=== PATIENT | female | born 1980 | race African-American/Black ===

== ENCOUNTER 2017-06-04 14:17 | Day surgery (SDC) | payer BC ==
[~2017-06-04 14:17] MED LIST: AMOXICILLIN500 MG; BACTRIM DS1 TAB PO; CIPROFLOXACN500 MG PO; COLACE100 MG PO; DIFLUCAN150 MG PO; FERR SULFATE325 MG PO; FIORICET PO; HYDROCO/APAP1 TA9 PO; LEVAQUIN500 MG PO; LORTAB 10-325 M1 TAB PO; LORTAB 5/3255 MG PO; LORTAB 7.57.5 MG PO; LORTAB5 PO; MACROBID100 MG PO; MEGACE40 MG PO; MEGESTROL AC20 MG PO; NAPROSYN250 MG PO; NITROFURANTO100 MG PO; NO; PYRIDIUM200 MG PO; TORADOL PO; ULTRAM50 M1 PO; ULTRAM50 MG OR
[2017-06-04 15:46] LABS: HEMATOCRIT 28.8 % (37.0-47.0); HEMOGLOBIN 8.6 g/dl (12.0-16.0); IMMATURE GRANULOCYTES 0.3 % (0.0-1.0); MEAN CORPUSCULAR HGB 21.5 pG CALC (26.0-32.0); MEAN CORPUSCULAR HGB CONC 29.9 g/L CALC (32.0-36.0); NEUT# 4.47 thou/uL (2.00-7.15); RED CELL DISTRI WIDTH 18.2 % (11.5-15.5)
[2017-06-04] MEDS ORDERED: PREMARIN0.3 MG PO (16:32)
[2017-06-04] MEDS ORDERED: PROVERA5 MG PO (16:34)
[2017-06-04] MEDS ORDERED: VYVANSE70 MG PO (16:35)
[2017-06-04 18:23] VITALS: BP 162/79
== END 2017-06-04 18:15 | disposition home or self-care (01) | DRG 744 ==
LOC: ORM 14:17
PROC: 0UDB7ZZ Extraction of Endometrium, Via Natural or Artificial Opening (ICD-10-PCS; principal; 2017-06-04)
DX: N93.8 Other specified abnormal uterine and vaginal bleeding (principal); D62 Acute posthemorrhagic anemia; E66.01 Morbid (severe) obesity due to excess calories; N83.209 Unspecified ovarian cyst, unspecified side
CPT/HCPCS: J1410

== ENCOUNTER 2017-07-17 07:47 | Emergency (ER) | payer BC ==
[~2017-07-17] VITALS: Ht 175.3 cm; Wt 160.0 kg
[~2017-07-17 07:47] MED LIST changes: +PREMARIN0.3 MG PO; +PROVERA5 MG PO; +VYVANSE70 MG PO
[2017-07-17 08:16] LABS: URINE BILIRUBIN - DIPSTICK NEGATIVE (NEGATIVE); URINE BLOOD DIPSTICK TRACE-INTACT (NEGATIVE); URINE CLARITY CLEAR; URINE COLOR YELLOW; URINE GLUCOSE - DIPSTICK 100 mg/dL (NEGATIVE); URINE KETONE NEGATIVE (NEGATIVE); URINE LEUK ESTERASE TRACE (Negative); URINE NITRITE - DIPSTICK POSITIVE (Negative); URINE PH 5.5 (4.5-8.0); URINE PROTEIN - DIPSTICK 30 mg/dL (NEG-TRACE); URINE SPECIFIC GRAVITY 1.025
[2017-07-17 08:19] LABS: URINE SQUAMOUS EPITHELIAL CELL FEW EPI/hpf (0-FEW)
[2017-07-17] MEDS ORDERED: CEPHALEXIN500 M1 PO (08:45)
[2017-07-17] MEDS ORDERED: FLEXERIL5 M1 PO (08:45)
[2017-07-17] MEDS ORDERED: MOTRIN400 MG PO (08:45)
[2017-07-17 08:47] VITALS: BP 152/76
== END 2017-07-17 08:59 | disposition home or self-care (01) | DRG 690 ==
LOC: ED 07:47
PROVIDERS: Family Medicine
DX: N39.0 Urinary tract infection, site not specified (principal); D56.9 Thalassemia, unspecified; M54.5 Low back pain; Q63.1 Lobulated, fused and horseshoe kidney

== ENCOUNTER 2017-10-17 13:11 | Emergency (ER) | payer BC ==
[~2017-10-17] VITALS: Ht 175.3 cm; Wt 172.0 kg
[~2017-10-17 13:11] MED LIST changes: +CEPHALEXIN500 M1 PO; +FLEXERIL5 M1 PO; +MOTRIN400 MG PO
[2017-10-17] MEDS ORDERED: FLEXERIL5 M1 PO (14:27)
[2017-10-17 14:28] VITALS: BP 182/89
== END 2017-10-17 14:36 | disposition home or self-care (01) | DRG 552 ==
LOC: ED 13:11
DX: M54.5 Low back pain (principal); Q63.1 Lobulated, fused and horseshoe kidney

== ENCOUNTER 2017-10-30 13:44 | Emergency (ER) | payer BC ==
[~2017-10-30] VITALS: Ht 175.3 cm; Wt 171.0 kg
[2017-10-30] MEDS ORDERED: PENICILLN VK500 MG PO (14:01)
[2017-10-30] MEDS ORDERED: ZESTRIL10 M1 PO (14:55)
[2017-10-30 15:03] VITALS: BP 178/100
== END 2017-10-30 15:13 | disposition home or self-care (01) | DRG 153 ==
LOC: ED 13:44
DX: J02.9 Acute pharyngitis, unspecified (principal); D56.9 Thalassemia, unspecified; Q63.1 Lobulated, fused and horseshoe kidney

== ENCOUNTER 2018-06-04 19:53 | Emergency (ER) | payer BC ==
[~2018-06-04] VITALS: Ht 175.3 cm; Wt 172.7 kg
[~2018-06-04 19:53] MED LIST changes: +PENICILLN VK500 MG PO; +ZESTRIL10 M1 PO
[2018-06-04 20:30] LABS: URINE BILIRUBIN - DIPSTICK NEGATIVE (NEGATIVE); URINE BLOOD DIPSTICK NEGATIVE (NEGATIVE); URINE COLOR YELLOW; URINE GLUCOSE - DIPSTICK NEGATIVE (NEGATIVE); URINE KETONE NEGATIVE (NEGATIVE); URINE LEUK ESTERASE NEGATIVE (NEGATIVE); URINE NITRITE - DIPSTICK NEGATIVE (Negative); URINE PROTEIN - DIPSTICK NEGATIVE (NEG-TRACE); URINE UROBILINOGEN - DIPSTICK 0.2 E.U./dL (0.2)
[2018-06-04 20:31] LABS: URINE CLARITY SL CLOUDY
[2018-06-04 20:34] LABS: URINE BACTERIA FEW hpf; URINE MUCUS FEW hpf (NONE-FEW); URINE RBC 0-2 RBC/hpf (0-5); URINE SQUAMOUS EPITHELIAL CELL MANY EPI/hpf (0-FEW)
[2018-06-04 20:48] LABS: HEMATOCRIT 34.2 % (37.0-47.0); HEMOGLOBIN 10.3 g/dl (12.0-16.0); IMMATURE GRANULOCYTES 0.7 % (0.0-1.0); MEAN CELL VOLUME 67.5 fL CALC (80.0-100.0); MEAN CORPUSCULAR HGB 20.3 pG CALC (26.0-32.0); MEAN CORPUSCULAR HGB CONC 30.1 g/L CALC (32.0-36.0); NEUT# 11.17 thou/uL (2.00-7.15); RED BLOOD COUNT 5.07 mill/uL (4.20-5.60); RED CELL DISTRI WIDTH 18.1 % (11.5-15.5)
[2018-06-04 20:58] LABS: INFLUENZA A NONE DETECTED (NONE DETECT); INFLUENZA B NONE DETECTED (NONE DETECT)
[2018-06-04 21:04] LABS: ALBUMIN 3.8 g/dL (3.2-5.0); ALKALINE PHOSPHATASE 133 u/l (38-126); ANION GAP 17 (6-22 (CALC)); BILIRUBIN, TOTAL 0.7 mg/dL (0.0-1.4); BUN 13 mg/dL (7-17); BUN/CREATININE RATIO 19 (12-20 (CALC)); C-REACTIVE PROTEIN 3.7 mg/dL (0-0.9); CARBON DIOXIDE 23 mmol/l (22-30); CHLORIDE 101 mmol/l (95-108); CPK 84 u/l (30-165); CREATININE 0.7 mg/dL (0.5-1.0); GFR > 60 ML/MIN (>=60 (CALC)); GFR FOR AFR.AMER. > 60 ML/MIN (>=60 (CALC)); MAGNESIUM 1.3 mg/dL (1.6-2.3); POTASSIUM 4.3 mmol/l (3.5-5.1); SGOT/AST 25 u/l (14-36); SGPT/ALT 20 u/l (9-52)
[2018-06-04 21:05] LABS: SODIUM 137 mmol/l (137-146)
[2018-06-04] MEDS ORDERED: METRONIDAZOL500 MG PO (23:57)
[2018-06-04] MEDS ORDERED: CIPROFLOXACN500 MG PO (23:57)
[2018-06-04] MEDS ORDERED: LORTAB 5/3255 MG PO (23:57)
[2018-06-05 00:40] VITALS: BP 159/89
== END 2018-06-05 00:40 | disposition home or self-care (01) | DRG 392 ==
LOC: ED 19:53
PROVIDERS: Family Medicine
DX: K57.92 Diverticulitis of intestine, part unspecified, without perforation or abscess without bleeding (principal); N83.202 Unspecified ovarian cyst, left side; N83.201 Unspecified ovarian cyst, right side; Z87.440 Personal history of urinary (tract) infections; D56.9 Thalassemia, unspecified; Q63.1 Lobulated, fused and horseshoe kidney
CPT/HCPCS: Q9967

== ENCOUNTER 2018-06-08 08:22 | Emergency (ER) | payer BC ==
[~2018-06-08] VITALS: Ht 175.3 cm; Wt 181.6 kg
[~2018-06-08 08:22] MED LIST changes: +METRONIDAZOL500 MG PO
[2018-06-08 08:25] VITALS: BP 218/124
[2018-06-08 09:13] LABS: HEMATOCRIT 34.3 % (37.0-47.0); HEMOGLOBIN 10.1 g/dl (12.0-16.0); IMMATURE GRANULOCYTES 0.3 % (0.0-1.0); MEAN CELL VOLUME 68.6 fL CALC (80.0-100.0); MEAN CORPUSCULAR HGB 20.2 pG CALC (26.0-32.0); MEAN CORPUSCULAR HGB CONC 29.4 g/L CALC (32.0-36.0); NEUT# 3.68 thou/uL (2.00-7.15); RED CELL DISTRI WIDTH 18.6 % (11.5-15.5)
[2018-06-08 09:14] LABS: URINE BILIRUBIN - DIPSTICK NEGATIVE (NEGATIVE); URINE BLOOD DIPSTICK NEGATIVE (NEGATIVE); URINE COLOR YELLOW; URINE GLUCOSE - DIPSTICK NEGATIVE (NEGATIVE); URINE KETONE NEGATIVE (NEGATIVE); URINE LEUK ESTERASE TRACE (NEGATIVE); URINE NITRITE - DIPSTICK NEGATIVE (Negative); URINE PROTEIN - DIPSTICK TRACE mg/dL (NEG-TRACE); URINE UROBILINOGEN - DIPSTICK 0.2 E.U./dL (0.2)
[2018-06-08 09:15] LABS: URINE CLARITY SL CLOUDY
[2018-06-08 09:28] LABS: ACT PARTIAL THROMBO TIME 34.3 SECONDS (20.0-32.5)
[2018-06-08 09:33] LABS: CPK 59 u/l (30-165)
[2018-06-08 09:35] LABS: ALBUMIN 3.8 g/dL (3.2-5.0); ALKALINE PHOSPHATASE 130 u/l (38-126); ANION GAP 15 (6-22 (CALC)); BILIRUBIN, TOTAL 0.4 mg/dL (0.0-1.4); BUN 12 mg/dL (7-17); BUN/CREATININE RATIO 17 (12-20 (CALC)); CARBON DIOXIDE 27 mmol/l (22-30); CHLORIDE 103 mmol/l (95-108); CREATININE 0.7 mg/dL (0.5-1.0); GFR > 60 ML/MIN (>=60 (CALC)); GFR FOR AFR.AMER. > 60 ML/MIN (>=60 (CALC)); POTASSIUM 4.4 mmol/l (3.5-5.1); SGOT/AST 24 u/l (14-36); SGPT/ALT 22 u/l (9-52); SODIUM 140 mmol/l (137-146); TOTAL PROTEIN 7.9 g/dL (6.3-8.2)
[2018-06-08 09:37] LABS: C-REACTIVE PROTEIN 5.1 mg/dL (0-0.9)
[2018-06-08 09:38] LABS: MAGNESIUM 1.8 mg/dL (1.6-2.3); URINE RBC 0-2 RBC/hpf (0-5)
[2018-06-08 09:39] LABS: URINE SQUAMOUS EPITHELIAL CELL MODERATE EPI/hpf (0-FEW)
[2018-06-08 09:43] LABS: MYOGLOBIN 33 ng/mL (0 - 62)
[2018-06-08] MEDS ORDERED: LORTAB 5/3255 MG PO (12:55)
== END 2018-06-08 13:08 | disposition home or self-care (01) | DRG 864 ==
LOC: ED 08:22
PROVIDERS: Family Medicine
DX: R50.9 Fever, unspecified (principal); M79.1 Myalgia; K57.92 Diverticulitis of intestine, part unspecified, without perforation or abscess without bleeding; D56.9 Thalassemia, unspecified; Q63.1 Lobulated, fused and horseshoe kidney; B37.9 Candidiasis, unspecified; Z87.440 Personal history of urinary (tract) infections
CPT/HCPCS: Q9967

== ENCOUNTER 2018-11-22 15:03 | Emergency (ER) | payer BC ==
[~2018-11-22] VITALS: Ht 175.3 cm; Wt 170.0 kg
[2018-11-22] MEDS ORDERED: AUGMENTIN875TAB PO (15:33)
[2018-11-22 16:00] VITALS: BP 150/89
[2018-11-22] MEDS ORDERED: NO HOME MEDS (16:03)
== END 2018-11-22 16:00 | disposition home or self-care (01) | DRG 153 ==
LOC: ED 15:03
DX: J02.9 Acute pharyngitis, unspecified (principal); R09.81 Nasal congestion; Q63.1 Lobulated, fused and horseshoe kidney; D56.9 Thalassemia, unspecified

== ENCOUNTER 2019-03-21 03:43 | Emergency (ER) | payer BC, OTHER ==
[~2019-03-21] VITALS: Ht 170.2 cm; Wt 185.0 kg
[~2019-03-21 03:43] MED LIST changes: +AUGMENTIN875TAB PO; +NO HOME MEDS
[2019-03-21] MEDS ORDERED: AMOXICILLIN500 MG PO (06:35)
[2019-03-21 06:46] VITALS: BP 166/92
== END 2019-03-21 06:46 | disposition home or self-care (01) | DRG 153 ==
LOC: ED 03:43
DX: J06.9 Acute upper respiratory infection, unspecified (principal); H66.90 Otitis media, unspecified, unspecified ear; I10 Essential (primary) hypertension

== ENCOUNTER 2019-04-09 18:44 | Emergency (ER) | payer OTHER ==
[~2019-04-09] VITALS: Ht 170.2 cm; Wt 180.0 kg
[~2019-04-09 18:44] MED LIST changes: +AMOXICILLIN500 MG PO
[2019-04-09 19:55] LABS: HEMATOCRIT 37.5 % (37.0-47.0); HEMOGLOBIN 11.1 g/dl (12.0-16.0); IMMATURE GRANULOCYTES 0.6 % (0.0-5.0); MEAN CELL VOLUME 72.5 fL CALC (80.0-100.0); MEAN CORPUSCULAR HGB 21.5 pG CALC (26.0-32.0); MEAN CORPUSCULAR HGB CONC 29.6 g/L CALC (32.0-36.0); NEUT# 4.36 thou/uL (2.00-7.15); RED BLOOD COUNT 5.17 mill/uL (4.20-5.60); RED CELL DISTRI WIDTH 17.8 % (11.5-15.5)
[2019-04-09] MEDS ORDERED: TUSSIONEX1 ML PO (21:38)
[2019-04-09 21:58] VITALS: BP 179/98
[2019-04-09] MEDS ORDERED: LISINOPRIL10 MG PO (22:19)
== END 2019-04-09 21:58 | disposition home or self-care (01) ==
LOC: ED 18:44
PROVIDERS: Family Medicine
DX: R05 Cough (principal); R07.89 Other chest pain; R09.81 Nasal congestion; R50.9 Fever, unspecified